=== PATIENT | female | born 1950 | race Caucasian/White ===

== ENCOUNTER 2022-06-13 10:17 | Day surgery (SDC) | payer OTHER ==
[2022-06-12 09:29] LABS: BASOPHILS # (AUTO) 0.1 X10'3 (0-0.2); BASOPHILS % (AUTO) 1.1 % (0-1); EOSINOPHILS # (AUTO) 0.1 X10'3 (0-0.9); EOSINOPHILS % (AUTO) 1.2 % (0-6); HEMATOCRIT 44.7 % (35.0-45.0); LYMPHOCYTES # (AUTO) 1.2 X10'3 (1.1-4.8); LYMPHOCYTES % (AUTO) 16.1 % (21-51); MEAN CORPUSCULAR HEMOGLOBIN 30.7 PG (27.0-31.0); MEAN CORPUSCULAR HGB CONC 33.6 g/dL (33.0-36.5); MEAN CORPUSCULAR VOLUME 91.3 FL (78-98); MEAN PLATELET VOLUME 9.5 FL (7.4-10.4); MONOCYTES # (AUTO) 0.5 X10'3 (0-0.9); MONOCYTES % (AUTO) 6.7 % (2-12); NEUTROPHILS # (AUTO) 5.4 X10'3 (1.8-7.7); NEUTROPHILS % (AUTO) 74.9 % (42-75); PLATELET COUNT 162 X10'3 (140-440); RED CELL DISTRIBUTION WIDTH 14.1 % (11.5-14.5); WHITE BLOOD COUNT 7.2 X10'3 (4.5-11.0)
[2022-06-12 09:47] LABS: ALBUMIN 3.4 G/DL (3.4-5.0); ANION GAP 9 (8-16); BLOOD UREA NITROGEN 13 MG/DL (7-18); BUN/CREATININE RATIO 11.9 (6.6-38.0); CHLORIDE 102 MMOL/L (99-107); CREATININE 1.09 MG/DL (0.40-0.90); GLUCOSE 152 MG/DL (70-104); POTASSIUM 3.4 MMOL/L (3.5-5.1); SODIUM 140 MMOL/L (135-145); TOTAL CARBON DIOXIDE 29.1 MMOL/L (24-32); eGFR 49 ML/MIN
[2022-06-12 09:51] LABS: APTT 34 SECONDS (22-32)
[~2022-06-13] VITALS: Ht 157.5 cm; Wt 80.9 kg
[2022-06-13] VITALS (14 sets, daily range): BP systolic 145–178; BP diastolic 71–93
[2022-06-13] MEDS ORDERED: MIDAZolam 1mg/ml 10ml vial IV ONE (10:35)
[2022-06-13] MEDS ORDERED: fentaNYL/PF 50MCG/1 ML 2ML syringe IV ONE (10:35)
[2022-06-13] MEDS ORDERED: normal saline 1000ml 1,000 ML IV SCH (10:35)
[2022-06-13] MEDS ORDERED: BUPR-353 PO (10:53)
[2022-06-13] MEDS ORDERED: SOTA80TA73 PO (10:53)
[2022-06-13] MEDS ORDERED: SIMV-42 PO (10:53)
[2022-06-13] MEDS ORDERED: APIX5TAB3 PO (10:53)
[2022-06-13] MEDS ORDERED: METO-384 PO (10:55)
[2022-06-13] MEDS ORDERED: UBID100C16 PO (11:02)
[2022-06-13] MEDS ORDERED: MELA3TAB39 PO (11:02)
[2022-06-13] MEDS ORDERED: CHOL100046 PO (11:02)
[2022-06-13] MEDS ORDERED: ESTROGENS METHYLTEST PO (11:02)
[2022-06-13] MEDS ORDERED: FISH1CAP15 PO (11:02)
[2022-06-15] MEDS ORDERED: TRIA1CAP88 PO (20:35)
== END 2022-06-13 14:50 | disposition home or self-care (01) ==
LOC: SSTAY O 10:17
PROVIDERS: ATTEND Student in an Organized Health Care Education/Training Program
DX: I48.91 Unspecified atrial fibrillation (principal); E11.9 Type 2 diabetes mellitus without complications; I10 Essential (primary) hypertension; Z88.0 Allergy status to penicillin; Z88.8 Allergy status to other drugs, medicaments and biological substances; Z79.899 Other long term (current) drug therapy; Z98.890 Other specified postprocedural states
CPT/HCPCS: 36415; 80048; 85025; 85610; 85730; 92960; 93005; 94799; J2250; J3010; J7030

== ENCOUNTER 2022-11-27 09:56 | Outpatient (CLI) | payer OTHER ==
[~2022-11-27 09:56] MED LIST: APIX5TAB3 PO; BUPR-353 PO; CHOL100046 PO; ESTROGENS METHYLTEST PO; FISH1CAP15 PO; MELA3TAB39 PO; METO-384 PO; SIMV-42 PO; SOTA80TA73 PO; TRIA1CAP88 PO; UBID100C16 PO
[2022-11-27 11:30] LABS: ALBUMIN 3.8 G/DL (3.4-5.0); ANION GAP 5 (8-16); BLOOD UREA NITROGEN 16 MG/DL (7-18); BUN/CREATININE RATIO 12.7 (6.6-38.0); CHLORIDE 99 MMOL/L (99-107); CREATININE 1.26 MG/DL (0.40-0.90); GLUCOSE 201 MG/DL (70-104); POTASSIUM 3.1 MMOL/L (3.5-5.1); SODIUM 136 MMOL/L (135-145); TOTAL CARBON DIOXIDE 31.6 MMOL/L (24-32); eGFR 42 ML/MIN
[2022-11-27 11:35] LABS: APTT 34 SECONDS (22-32)
[2022-11-27 11:38] LABS: HEMATOCRIT 46.6 % (35.0-45.0); WHITE BLOOD COUNT 5.8 X10'3 (4.5-11.0)
[2022-11-27 11:39] LABS: HEMOGLOBIN 15.9 g/dl (12.0-16.0); MEAN CORPUSCULAR HEMOGLOBIN 31.5 PG (27.0-31.0); MEAN CORPUSCULAR HGB CONC 34.2 g/dL (33.0-36.5); MEAN PLATELET VOLUME 9.4 FL (7.4-10.4); PLATELET COUNT 185 X10'3 (140-440); RED BLOOD COUNT 5.07 X10'6 (4.20-5.60); RED CELL DISTRIBUTION WIDTH 13.6 % (11.5-14.5)
[2022-11-27 12:09] LABS: PLATELET ESTIMATE NORMAL; TOTAL CELLS COUNTED 100
== END 2022-11-27 23:59 | disposition home or self-care (01) ==
LOC: LAB 09:56 → EDSTATUS 11-28 12:30
PROVIDERS: ATTEND Student in an Organized Health Care Education/Training Program
DX: Z01.810 Encounter for preprocedural cardiovascular examination (principal); I48.91 Unspecified atrial fibrillation; R94.31 Abnormal electrocardiogram [ECG] [EKG]; E11.9 Type 2 diabetes mellitus without complications; E78.5 Hyperlipidemia, unspecified; R53.83 Other fatigue; R06.02 Shortness of breath; I48.92 Unspecified atrial flutter
CPT/HCPCS: 36415; 80048; 85007; 85025; 85610; 85730